=== PATIENT | female | born 1995 | race Caucasian/White ===

== ENCOUNTER 2016-09-18 22:25 | Emergency (ER) | payer OTHER ==
[~2016-09-18] VITALS: Ht 162.6 cm; Wt 59.1 kg
[2016-09-18 22:33] VITALS: TEMP 98.1
[2016-09-18] MEDS ORDERED: NORTREL 35 MCG-1 TA1 PO (22:44)
[2016-09-19] VITALS: BP 132/82; PULSE 92
== END 2016-09-19 00:02 | disposition home or self-care (01) ==
LOC: COL.ER 22:25
DX: S06.0X0A Concussion without loss of consciousness, initial encounter (principal); S16.1XXA Strain of muscle, fascia and tendon at neck level, initial encounter; V43.52XA Car driver injured in collision with other type car in traffic accident, initial encounter; Y92.410 Unspecified street and highway as the place of occurrence of the external cause; R40.2362 Coma scale, best motor response, obeys commands, at arrival to emergency department; R40.2142 Coma scale, eyes open, spontaneous, at arrival to emergency department; R40.2252 Coma scale, best verbal response, oriented, at arrival to emergency department

== ENCOUNTER 2018-03-07 16:43 | Emergency (ER) | payer BC ==
[~2018-03-07] VITALS: Ht 162.6 cm; Wt 59.1 kg
[~2018-03-07 16:43] MED LIST: NORTREL 35 MCG-1 TA1 PO
[2018-03-07 16:48] VITALS: TEMP 97.5
[2018-03-07 18:50] VITALS: BP 125/77; PULSE 91
== END 2018-03-07 18:57 | disposition home or self-care (01) ==
LOC: COL.ER 16:43
DX: S01.81XA Laceration without foreign body of other part of head, initial encounter (principal); S80.12XA Contusion of left lower leg, initial encounter; R40.2412 Glasgow coma scale score 13-15, at arrival to emergency department; V80.010A Animal-rider injured by fall from or being thrown from horse in noncollision accident, initial encounter